=== PATIENT | female | born 1955 | race African-American/Black ===

== ENCOUNTER 2019-05-21 08:33 | Emergency (ER) | payer BC ==
[2019-05-21 08:55] VITALS: BP 103/64; PULSE 82; TEMP 98; BMI 32.8
[2019-05-21] MEDS ORDERED: predniSONE 20 MG TABLET (UD) ONE (09:11)
[2019-05-21] MEDS ORDERED: ALBUTEROL SO4 2.5/IPRATROPIUM 0.5 INH SOL 3 ML VIAL.NEB. NEB ONE ×6 (09:11→10:15)
[2019-05-21] MEDS ORDERED: predniSONE 20 MG TABLET (UD) PO ONE (09:18)
--- NOTE | 2019-05-21 09:19 | PDOC ---
History of Present Illness - General Chief Complaint: Cold Symptoms Stated Complaint: CHEST COLD Time Seen by Provider: 05/21/19 09:18 History Source: Patient Exam Limitations: No Limitations - History of Present Illness Initial Comments: 05/21/19 09:38 c/o cough/ wheezing/ x 2 days - worsen with cold Timing/Duration: reports: getting worse Severity: reports: mild, moderate Past History - Travel Traveled outside of the country in the last 30 days: No Close contact w/someone who was outside of country & ill: No - Past Medical History Allergies/Adverse Reactions: Allergies Allergy/AdvReac Type Severity Reaction Status Date / Time codeine Allergy Intermediate Rash Verified 05/21/19 08:45 Home Medications: Ambulatory Orders Venlafaxine HCl ER [Effexor Xr -] 37.5 mg PO DAILY 12/29/15 Albuterol 0.083% Nebulizer Palma [Ventolin 0.083% Nebulizer Soln -] 1 neb NEB Q4H PRN #30 vial 05/21/19 Albuterol Sulfate Inhaler - [Ventolin HFA Inhaler -] 1 - 2 inh PO Q4H #1 inhaler 05/21/19 Azithromycin [Zithromax -] 250 mg PO UTDICT #6 tab 05/21/19 Compressor, For Nebulizer [Devilbiss Pulmo-Aide] 1 each MC Q6H #1 each 05/21/19 predniSONE [Deltasone -] 20 mg PO BID #8 tablet 05/21/19 Asthma: Yes COPD: No Diabetes: No (pre) HTN: No Hypercholesterolemia: Yes Psychiatric Problems: Yes Thyroid Disease: No - Surgical History Abdominal Surgery: Yes (HERNIA REPAIR) - Suicide/Smoking/Psychosocial Hx Smoking Status: No Smoking History: Never smoked Have you smoked in the past 12 months: No Number of Cigarettes Smoked Daily: 0 Hx Alcohol Use: Yes (occasionally) Drug/Substance Use Hx: No Substance Use Type: None Review of Systems - Review of Systems Able to Perform ROS?: Yes Is the patient limited [place] proficient: Yes Constitutional: Yes: Symptoms Reported, See HPI, Chills, Fever, Malaise HEENTM: Yes: Symptoms Reported, See HPI, Nose Congestion Respiratory: Yes: Symptoms reported, See HPI, Cough, Shortness of Breath, Wheezing Cardiac (ROS): Yes: See HPI. No: Symptoms Reported Musculoskeletal: Yes: Symptoms Reported Integumentary: Yes: Symptoms Reported, See HPI All Other Systems: Reviewed and Negative *Physical Exam - Vital Signs Last Vital Signs Temp Pulse Resp BP Pulse Ox 98 F 82 18 103/64 99 05/21/19 08:45 05/21/19 08:45 05/21/19 08:45 05/21/19 08:45 05/21/19 08:45 - Physical Exam General Appearance: Yes: Nourished, Appropriately Dressed, Apparent Distress, Moderate Distress HEENT: positive: HERMINIO, Normal ENT Inspection, TMs Normal (congested / landmarks easily visualized ), Nasal Congestion, Rhinorrhea Neck: positive: Supple, Lymphadenopathy (R), Lymphadenopathy (L). negative: Tender Respiratory/Chest: positive: Decreased Breath Sounds (bilateral coarse insp/ exp BS), Wheezing (coarse ). negative: Lungs Clear, Normal Breath Sounds Musculoskeletal: positive: Normal Inspection Extremity: positive: Normal Inspection Integumentary: positive: Normal Color, Dry, Warm, Pale Neurologic: positive: press operator assistant II-XII NML intact, Fully Oriented, Alert, Normal Mood/ Affect, Normal Response, Motor Strength 5/5 Progress Note - Progress Note Progress Note: Asthmatic bronchitis/ much improved after prednisone and 3 nebs. will F/U with PMD *DC/Admit/Observation/Transfer Diagnosis at time of Disposition: Cough - Discharge Dispostion Disposition: HOME Condition at time of disposition: Stable Decision to Admit order: No - Prescriptions Prescriptions: Albuterol 0.083% Nebulizer Palma [Ventolin 0.083% Nebulizer Soln -] 1 neb NEB Q4H PRN #30 vial PRN Reason: Cough Albuterol Sulfate Inhaler - [Ventolin HFA Inhaler -] 1 - 2 inh PO Q4H #1 inhaler Azithromycin [Zithromax -] 250 mg PO UTDICT #6 tab Compressor, For Nebulizer [Devilbiss Pulmo-Aide] 1 each MC Q6H #1 each predniSONE [Deltasone -] 20 mg PO BID #8 tablet - Referrals Referrals: Kike Shah [Primary Care Provider] - - Patient Instructions Printed Discharge Instructions: DI for Viral Upper Respiratory Infection -- Adult Additional Instructions: rest, Lots of fluids Albuterol Nebs every 6 hours for next 2 days Prednisone 40mg daily next 4 days Zithromax as directed\ See PMD in 2-3 days for re-check RTER for recurrance of symptoms - Post Discharge Activity Forms/Work/School Notes: Back to Work
== END 2019-05-21 11:19 | disposition home or self-care (01) ==
LOC: JER 08:33 → JERFT 08:33
PROC: 3E0F7GC Introduction of Other Therapeutic Substance into Respiratory Tract, Via Natural or Artificial Opening (ICD-10-PCS; principal; 2019-05-21)
PROC: 3E0F7GC Introduction of Other Therapeutic Substance into Respiratory Tract, Via Natural or Artificial Opening (ICD-10-PCS; 2019-05-21)
PROC: 3E0F7GC Introduction of Other Therapeutic Substance into Respiratory Tract, Via Natural or Artificial Opening (ICD-10-PCS; 2019-05-21)
DX: J45.909 Unspecified asthma, uncomplicated (principal); J06.9 Acute upper respiratory infection, unspecified; B97.89 Other viral agents as the cause of diseases classified elsewhere; R73.03 Prediabetes; E78.00 Pure hypercholesterolemia, unspecified; Z86.59 Personal history of other mental and behavioral disorders
CPT/HCPCS: 71046-TC-FY; 99281-25

== ENCOUNTER 2021-10-18 15:10 | Emergency (ER) | payer BC ==
[2021-10-18 15:30] VITALS: BP 133/65; PULSE 64; TEMP 98.4; BMI 27.3
== END 2021-10-18 17:04 | disposition home or self-care (01) ==
LOC: FER 15:10
DX: M25.571 Pain in right ankle and joints of right foot (principal); W01.0XXA Fall on same level from slipping, tripping and stumbling without subsequent striking against object, initial encounter
CPT/HCPCS: 73610-TC-RT-FY; 73630-TC-RT-FY; 99283-25

== ENCOUNTER 2022-04-30 19:50 | Emergency (ER) | payer BC ==
[2022-04-30] MEDS ORDERED: ACETAMINOPHEN 325 MG TABLET (FP) PO ONE (19:59)
[2022-04-30 20:02] VITALS: BP 148/84; PULSE 75; TEMP 98.4; BMI 33.8
[2022-04-30] MEDS ORDERED: ACETAMINOPHEN 325 MG TABLET (FP) ONE (20:02)
== END 2022-04-30 21:25 | disposition home or self-care (01) ==
LOC: FER 19:50
DX: S09.90XA Unspecified injury of head, initial encounter (principal); W01.0XXA Fall on same level from slipping, tripping and stumbling without subsequent striking against object, initial encounter; Y92.090 Kitchen in other non-institutional residence as the place of occurrence of the external cause
CPT/HCPCS: 70450-TC; 99284-25